=== PATIENT | male | born 1990 | race Two or more races ===

== ENCOUNTER 2021-09-29 08:56 | Emergency (ER) | payer OTHER ==
[~2021-09-29] VITALS: Ht 170.2 cm; Wt 81.6 kg
[2021-09-29 09:33] VITALS: BP 117/82
[2021-09-29] MEDS ORDERED: LIDOCAINE 1% HCL (LOCAL ANESTH.) INJ 20ML MDV IJ ONE (09:45)
[2021-09-29] MEDS ORDERED: TETANUS-DIPTH-ACEL PERTUSSIS 0.5ML SYR Tdap IM ONE (10:00)
== END 2021-09-29 10:12 | disposition home or self-care (01) ==
LOC: ER 08:56
DX: S61.412A Laceration without foreign body of left hand, initial encounter (principal); W26.0XXA Contact with knife, initial encounter; Y93.89 Activity, other specified; Y92.89 Other specified places as the place of occurrence of the external cause; Y99.8 Other external cause status
CPT/HCPCS: 12002; 90471; 90715; 99283; J2001